=== PATIENT | male | born 1950 | race Caucasian/White ===

== ENCOUNTER 2018-08-27 10:31 | Day surgery (SDC) | payer MEDICARE, OTHER ==
[~2018-08-27] VITALS: Ht 167.6 cm; Wt 77.1 kg
[~2018-08-27 10:31] MED LIST: HYDROmorphone 2 MG/ML VIAL IV PRN; IV RINGERS,LACTATED 1000ML 1,000 ML IV SCH; LIDOCAINE 1% PF 2 ML VIAL. ID PRN; MORPHINE SULFATE 4 MG/ML VIAL. IV PRN; ONDANSETRON PF 4 MG/2 ML VIAL. IV PRN; PROCHLORPERAZINE 10 MG/2 ML VIAL. IV PRN; fentaNYL PF VIAL 100 MCG/2 ML VIAL IV PRN
[2018-08-27] MEDS ORDERED: LOSA100T14 PO (11:06)
[2018-08-27] MEDS ORDERED: OMEG-165 PO (11:07)
[2018-08-27] MEDS ORDERED: ASPI81TA50 PO (11:07)
[2018-08-27] MEDS ORDERED: UBID30CA6 PO (11:08)
[2018-08-27] MEDS ORDERED: CRESTOR40 MG PO (11:09)
[2018-08-27] MEDS ORDERED: LIDOCAINE 2% JELLY 6ML IN APPLICATOR. ONE (11:28)
[2018-08-27] MEDS ORDERED: IOHEXOL 300 MG/ML 100ML VIAL. ONE (11:28)
[2018-08-27] MEDS ORDERED: ePHEDrine PF IN SALINE 50 MG/5 ML DISP.SYRIN IV ONE (11:44)
[2018-08-27] MEDS ORDERED: fentaNYL PF VIAL 100 MCG/2 ML VIAL ONE (11:44)
[2018-08-27] MEDS ORDERED: LIDOCAINE 2% PF Vial for OR 5 ML VIAL. ONE (11:45)
[2018-08-27] MEDS ORDERED: PROPOFOL 20 ML IV ONE ×2 (11:45→13:32)
[2018-08-27] MEDS ORDERED: STERILE WATER IRR ONE (12:30)
[2018-08-27] MEDS ORDERED: MITOMYCIN IRR ONE (12:30)
[2018-08-27] MEDS ORDERED: ONDANSETRON PF 4 MG/2 ML VIAL. ONE (13:37)
[2018-08-27] MEDS ORDERED: DEXAMETHASONE SOD PHOS 20 MG/5 ML VIAL. ONE (13:37)
[2018-08-27] MEDS ORDERED: GLYCOPYRROLATE 1 MG/5 ML VIAL. ONE (13:41)
[2018-08-27] MEDS ORDERED: ESMOLOL 100 MG/10 ML VIAL. IV ONE (14:08)
--- NOTE | 2018-08-27 14:30 | PDOC4 ---
OPERATIVE NOTE Date: Date: Aug 27, 2018 Pre-Op Diagnosis: Gen Anes and pt placd in lithotomy pos'n. IV abx were admin'd. Cysto performed w 21-Fr cystoscope. Ant urethra nl. Prostatic urethra compromised but not obstructing. Bladder exam revealed mild trabec, nl R UO, and shallow BT over the L marylin-trigone to neck. The L UO was not identified. The tumor was removed with the 24-Fr resectoscope. It appeared to be shallow in all areas. The L UO was not clearly identified. All resection sites were thoroughly fulgurated. On final exam, the tumor had been completely resected and the resection sites were hemostatic. The scope was removed and a blanton was placed and the bladder drained. Mitomycin, 20 mg in 50cc saline, was the introduced into the bladder and the blanton was clamped. The pt was then transferred to after emergence from anesthesia. There were no comp's. Pt was stable throughout. Post-Op Diagnosis: TCCB Procedure Performed: see above; the pre op dx was hematuria with bladder mass Surgeon: Young Anesthesia Type: Gen Blood Loss: minimal Specimans Obtained: bladder tumor tissue Findings: see above Complications: none Operative Note: see above ELIJAH BEARD MD Aug 27, 2018 14:30
[2018-08-27] MEDS ORDERED: POTASSIUM CL 20MEQ-0.45% NACL 1,000 ML IV SCH (14:31)
--- NOTE | 2018-08-27 14:41 | DISCH ---
DISCHARGE INSTRUCTIONS Condition on Discharge Condition on Discharge: Stable Activity After Discharge Activity Instructions for Disc: Avoid exertion, Bedrest today, Progressive ambulation Lifting Instructions after Dis: No heavy lifting Driving Instructions after Dis: Do not drive Weight Bearing Status after Di: Full weight bearing Diet after Discharge Diet after Discharge: Clear Liquid Contacting the DRKatya after DC Call your doctor for: Fever greater than 100 Follow-Up Follow up with: Dr Vidal's office; call in 48 hrs ELIJAH VIDAL MD Aug 27, 2018 14:40
[2018-08-27] MEDS ORDERED: HYDROcodone/APAP 5/325MG 1 TAB TABLET PO PRN (14:45)
[2018-08-27] MEDS ORDERED: 0.9 % SODIUM CHLORIDE 10 ML DISP.SYRIN. IV PRN (14:45)
[2018-08-27] MEDS ORDERED: NALOXONE 0.4 MG/ML VIAL. IV PRN (14:45)
[2018-08-27] MEDS ORDERED: CIPR250T30 PO (15:07)
[2018-08-27 15:48] VITALS: BP 167/95
--- NOTE | 2018-08-28 17:09 | PATHOLOGY ---
[facility] Accession Number: [id number] . 01 Material submitted: . BLADDER TUMOR . 01 Clinical history: . Bladder cancer . 02 Diagnosis: Bladder tumor, transurethral resection: - PAPILLARY UROTHELIAL CARCINOMA, LOW GRADE TO FOCAL HIGH GRADE. - Chronic inflammation. (JPM:alexandria; 08/28/2018) QMS/08/28/2018 . 02 Comment: Sections of the bladder tumor transurethral resection reveal a papillary, low grade to focal high grade urothelial carcinoma. There is focal chronic inflammation. There is no definitive evidence of invasive carcinoma. No muscularis propria is identified. The case is also examined by Dr. Nguyen, who concurs with the diagnosis. (JPM:alexandria 08/28/2018) . 02 Electronically signed: . Dennis Sosa MD, Pathologist NPI- [id number] . 01 Gross description: . The specimen is received in formalin, labeled "Dennis Escobar, bladder tumor", are multiple gomez-pink, irregular fragments measuring 1.0 x 0.7 x 0.2 cm in aggregate, entirely submitted in A1. ([facility]; 08/27/2018) SHS/SHS . 02 Pathologist provided ICD-10: C67.9, N30.20 . 02 CPT . 630716 Specimen Comment: A courtesy copy of this report has been sent to Specimen Comment: [phone]. Specimen Comment: Report sent to Performed at: 01 [facility] [address], [place] [id number] MD Ivan Santos MD Phone: [phone] Performed at: 02 [facility] [address] [place], [place] [id number] MD Dennis Sosa MD Phone: [phone]
== END 2018-08-27 16:19 | disposition home or self-care (01) ==
LOC: SURG 10:31
PROVIDERS: ATTEND Urology
DX: C67.0 Malignant neoplasm of trigone of bladder (principal); N30.20 Other chronic cystitis without hematuria; Z88.0 Allergy status to penicillin; Z88.8 Allergy status to other drugs, medicaments and biological substances; Z79.899 Other long term (current) drug therapy; Z98.890 Other specified postprocedural states; Z90.49 Acquired absence of other specified parts of digestive tract; I10 Essential (primary) hypertension; Z87.19 Personal history of other diseases of the digestive system; Z82.49 Family history of ischemic heart disease and other diseases of the circulatory system; F17.210 Nicotine dependence, cigarettes, uncomplicated; Z72.89 Other problems related to lifestyle
CPT/HCPCS: 51720; 52235; 88307; J0696; J1100; J2001; J2405; J2704; J3010; J3490; J9280; Q9967

== ENCOUNTER 2019-05-06 09:50 | Observation (INO) | payer MEDICARE ==
[2019-05-06] VITALS (9 sets, daily range): BP systolic 130–171; BP diastolic 68–94
[~2019-05-06 09:50] MED LIST changes: +ASPI-630 PO; +ASPI81TA50 PO; +CIPR250T30 PO; +CRESTOR40 MG PO; +CURCUMIN PO; +LOSA100T14 PO; +MORPHINE SULFATE 2 MG/ML VIAL. IV PRN; -MORPHINE SULFATE 4 MG/ML VIAL. IV PRN; +OMEG-165 PO; +UBID30CA6 PO; +[UNRECOGNIZED DRUG - OTHER] PO
[2019-05-06] MEDS ORDERED: fentaNYL PF VIAL 100 MCG/2 ML VIAL ONE ×2 (10:30→11:18)
[2019-05-06] MEDS ORDERED: CIPROFLOXACIN 400MG PREMIX 200 ML IV ONE (10:45)
[2019-05-06] MEDS ORDERED: PROPOFOL 20 ML IV ONE (11:18)
[2019-05-06] MEDS ORDERED: LIDOCAINE 2% PF 5 ML VIAL. ONE (11:18)
[2019-05-06] MEDS ORDERED: SEVOFLURANE 31 TO 60 MINUTES. IH ONE (12:31)
[2019-05-06] MEDS ORDERED: ePHEDrine PF IN SALINE 50 MG/10 ML SYRINGE. IV ONE (12:33)
[2019-05-06] MEDS ORDERED: GLYCOPYRROLATE 1 MG/5 ML VIAL. ONE (12:33)
[2019-05-06] MEDS: IV NORMAL SALINE 1000ML BAG 1,000 ML IV SCH (12:36)
[2019-05-06] MEDS ORDERED: ZOLPIDEM 5 MG TABLET. PO PRN (12:45)
[2019-05-06] MEDS ORDERED: MAG HYDROX/ALUMINUM HYD/SIMETH 30 ML ORAL.SUSP PO PRN (12:45)
[2019-05-06] MEDS ORDERED: NALOXONE 0.4 MG/ML VIAL. IV PRN ×2 (12:45)
[2019-05-06] MEDS ORDERED: MORPHINE SULFATE 2 MG/ML VIAL. IV PRN (12:45)
[2019-05-06] MEDS ORDERED: 0.9 % SODIUM CHLORIDE 10 ML DISP.SYRIN. IV PRN (12:45)
[2019-05-06] MEDS ORDERED: HYDROcodone/APAP 5/325MG 1 TAB TABLET PO PRN (12:45)
[2019-05-06] MEDS ORDERED: PROCHLORPERAZINE 25 MG SUPP.RECT. PR PRN (12:45)
[2019-05-06] MEDS ORDERED: PROCHLORPERAZINE 10 MG/2 ML VIAL. IV PRN (12:45)
[2019-05-06] MEDS ORDERED: ACETAMINOPHEN 325 MG TABLET. PO PRN (12:45)
[2019-05-06] MEDS ORDERED: diphenhydrAMINE HCL 25 MG CAPSULE PO PRN (12:45)
--- NOTE | 2019-05-06 12:49 | PDOC4 ---
OPERATIVE NOTE Date: Date: May 06, 2019 Pre-Op Diagnosis: Hx Bladder Cancer Post-Op Diagnosis: same; suspicious area at L bladder neck Procedure Performed: Cysto, TUR Bladder neck L side Surgeon: Young Anesthesia Type: Gen Blood Loss: 25cc Specimans Obtained: bladder neck specimens Findings: heaped up necrotic tissue on L bladder neck extending into the prostate; L UO not visualized Complications: neg Operative Note: Gen Anes Pt rec'd IV abx Pt placed in lithotomy pos'n Cysto w 21 Fr scope demonstrated nl ant urethra, compromised prostate fossa with necrotic shaggy tissue al L bladder neck. The bladder revealed no obvious tumors. The R UO was visualized and was wnl. The L UO was not identifiable. The 24 Fr Resectoscope was introduced and the tissue at the L side of the nec was removed in usual fashion. The base was cauterized with the "roller" for max hemostasis. All tissue fragments were removed from bladder for path exam. A 22 Fr 3-way fole was placed and irrigated ; the return was clear. CBI was established. The patient was then awakened and transferred to RR in stable cond'n. Disp: will keep overnight with blanton and rmove in am if clear. Path is pending. He is on Abx for his staph UTI. Pt tolerated well and was in stable cond'n in RR. ELIJAH BEARD MD May 06, 2019 12:48
[2019-05-06] MEDS ORDERED: PROCHLORPERAZINE 10 MG/2 ML VIAL. ONE (13:17)
[2019-05-06] MEDS: HYDROcodone/APAP 5/325MG 1 TAB TABLET PO PRN ×2 (13:37→21:40)
[2019-05-06] MEDS: POTASSIUM CL 20MEQ D5-0.45NACL 1,000 ML IV SCH ×2 (14:20→23:44)
[2019-05-06] MEDS: OPIUM/BELLADONNA 30/16.2MG SUPP.RECT. PR SCH ×2 (14:20→21:38)
[2019-05-06] MEDS: SENNOSIDES/DOCUSATE 8.6/50MG TABLET. PO SCH (21:37)
[2019-05-07 03:00] VITALS: BP 150/81
[2019-05-07] MEDS: HYDROcodone/APAP 5/325MG 1 TAB TABLET PO PRN (04:51)
[2019-05-07] MEDS: OPIUM/BELLADONNA 30/16.2MG SUPP.RECT. PR SCH ×2 (06:00→08:12)
[2019-05-07 06:01] LABS: BASO % 0 % (0-3); EOS % 0 % (0-3); HEMATOCRIT 41.7 % (39.0-53.0); LYMPH # 0.7 x10^3/uL (1.0-4.8); LYMPH % 6 % (24-48); MEAN CORPUSCULAR HEMOGLOBIN 30 pg (25-35); MEAN CORPUSCULAR HGB CONC 34 g/dL (31-37); MEAN CORPUSCULAR VOLUME 90 fL (79-100); MONO # 0.7 x10^3/uL (0.0-1.1); MONO % 5 % (0-9); NEUT # 10.7 x10^3/uL (1.8-7.7); NEUT % 89 % (31-73); PLATELET COUNT 203 x10^3/uL (140-400); RED BLOOD COUNT 4.64 x10^6/uL (4.30-5.70); RED CELL DISTRIBUTION WIDTH 14.9 % (11.5-14.5)
[2019-05-07 06:40] LABS: CALCIUM 9.9 mg/dL (8.5-10.1); CREATININE 1.6 mg/dL (0.7-1.3); GFR 43.1; POTASSIUM 4.9 mmol/L (3.5-5.1)
[2019-05-07 07:00] VITALS: BP 158/88
[2019-05-07] MEDS: SENNOSIDES/DOCUSATE 8.6/50MG TABLET. PO SCH (08:07)
[2019-05-07] MEDS: IV NORMAL SALINE 1000ML BAG 1,000 ML IV SCH (08:09)
[2019-05-07] MEDS: POTASSIUM CL 20MEQ D5-0.45NACL 1,000 ML IV SCH (08:11)
[2019-05-07 08:29] LABS: % BANDS 12 % (0-9); % LYMPHS 4 % (24-48); % MONOS 4 % (0-10); % SEGS 80 % (35-66); PLT ESTIMATE ADEQUATE (ADEQUATE)
--- NOTE | 2019-05-07 09:35 | NUR ---
Discharge Note: FILE,[address] Discharge instructions and discharge home medications reviewed with Patient and a copy given. All questions have been answered and understanding verbalized. The following instructions and handouts were given: information about appointments, medications, follow up, etc. Discontinued lines and drains: IV line in right hand removed, catheter tip intact. Patient discharged to home with self care with , patient ambulated to discharge vehicle.
--- NOTE | 2019-05-07 09:53 | DISCH ---
DISCHARGE INSTRUCTIONS Condition on Discharge Condition on Discharge: Stable Activity After Discharge Activity Instructions for Disc: Activity as tolerated Lifting Instructions after Dis: No heavy lifting Exercise Instruction after Dis: Progress as tolerated Weight Bearing Status after Di: As tolerated Diet after Discharge Diet after Discharge: Regular Diet Texture: Regular Liquid Texture: Thin Liquid Swallowing Supervision: None needed Checks after Discharge Checks after discharge: Check blood press - daily, Check your Temp as needed Contacting the DR. after DC Call your doctor for: Fever greater than 100 Follow-Up Follow up with: Dr. Vidal next week [phone] for pathology results. Follow Up With: Primary Care Physician within 1 week. Treatment/Equipment after DC Adaptive Equipment Issued: None TAMI GONZALEZ May 07, 2019 09:53
--- NOTE | 2019-05-07 11:27 | PDOC3 ---
Discharge Summary Visit Information Date of Admission: May 06, 2019 Date of Discharge: May 07, 2019 Admitting Diagnosis: bladder mass Final Diagnosis Problems Medical Problems: (1) Bladder cancer Status: Chronic Brief Hospital Course Allergies Allergies Coded Allergies Type Severity Reaction Last Updated Verified Penicillins Adverse Reaction Intermediate Nausea and Vomiting 05/06/19 Yes amlodipine Adverse Reaction Intermediate DOUBLE VISION 05/06/19 Yes lisinopril Adverse Reaction Intermediate COUGH 05/06/19 Yes Vital Signs Vital Signs Date Time Temp Pulse Resp B/P (MAP) Pulse Ox O2 Delivery O2 Flow Rate FiO2 05/07/19 07:49 Room Air 05/07/19 07:00 97.8 65 16 158/88 (111) 94 97.8 05/06/19 13:00 8 Lab Results Laboratory Tests Test 05/07/19 04:40 White Blood Count 12.0 x10^3/uL (4.0-11.0) Red Blood Count 4.64 x10^6/uL (4.30-5.70) Hemoglobin 14.0 g/dL (13.0-17.5) Hematocrit 41.7 % (39.0-53.0) Mean Corpuscular Volume 90 fL (79-100) Mean Corpuscular Hemoglobin 30 pg (25-35) Mean Corpuscular Hemoglobin Concent 34 g/dL (31-37) Red Cell Distribution Width 14.9 % (11.5-14.5) Platelet Count 203 x10^3/uL (140-400) Neutrophils (%) (Auto) 89 % (31-73) Lymphocytes (%) (Auto) 6 % (24-48) Monocytes (%) (Auto) 5 % (0-9) Eosinophils (%) (Auto) 0 % (0-3) Basophils (%) (Auto) 0 % (0-3) Neutrophils # (Auto) 10.7 x10^3/uL (1.8-7.7) Lymphocytes # (Auto) 0.7 x10^3/uL (1.0-4.8) Monocytes # (Auto) 0.7 x10^3/uL (0.0-1.1) Eosinophils # (Auto) 0.0 x10^3/uL (0.0-0.7) Basophils # (Auto) 0.0 x10^3/uL (0.0-0.2) Segmented Neutrophils % 80 % (35-66) Band Neutrophils % 12 % (0-9) Lymphocytes % 4 % (24-48) Monocytes % 4 % (0-10) Platelet Estimate Adequate (ADEQUATE) Large Platelets Few Sodium Level 137 mmol/L (136-145) Potassium Level 4.9 mmol/L (3.5-5.1) Chloride Level 103 mmol/L (98-107) Carbon Dioxide Level 25 mmol/L (21-32) Anion Gap 9 (6-14) Blood Urea Nitrogen 21 mg/dL (8-26) Creatinine 1.6 mg/dL (0.7-1.3) Estimated GFR (Cockcroft-Gault) 43.1 Glucose Level 144 mg/dL (70-99) Calcium Level 9.9 mg/dL (8.5-10.1) Laboratory Tests Test 05/07/19 04:40 White Blood Count 12.0 x10^3/uL (4.0-11.0) Red Blood Count 4.64 x10^6/uL (4.30-5.70) Hemoglobin 14.0 g/dL (13.0-17.5) Hematocrit 41.7 % (39.0-53.0) Mean Corpuscular Volume 90 fL (79-100) Mean Corpuscular Hemoglobin 30 pg (25-35) Mean Corpuscular Hemoglobin Concent 34 g/dL (31-37) Red Cell Distribution Width 14.9 % (11.5-14.5) Platelet Count 203 x10^3/uL (140-400) Neutrophils (%) (Auto) 89 % (31-73) Lymphocytes (%) (Auto) 6 % (24-48) Monocytes (%) (Auto) 5 % (0-9) Eosinophils (%) (Auto) 0 % (0-3) Basophils (%) (Auto) 0 % (0-3) Neutrophils # (Auto) 10.7 x10^3/uL (1.8-7.7) Lymphocytes # (Auto) 0.7 x10^3/uL (1.0-4.8) Monocytes # (Auto) 0.7 x10^3/uL (0.0-1.1) Eosinophils # (Auto) 0.0 x10^3/uL (0.0-0.7) Basophils # (Auto) 0.0 x10^3/uL (0.0-0.2) Segmented Neutrophils % 80 % (35-66) Band Neutrophils % 12 % (0-9) Lymphocytes % 4 % (24-48) Monocytes % 4 % (0-10) Platelet Estimate Adequate (ADEQUATE) Large Platelets Few Sodium Level 137 mmol/L (136-145) Potassium Level 4.9 mmol/L (3.5-5.1) Chloride Level 103 mmol/L (98-107) Carbon Dioxide Level 25 mmol/L (21-32) Anion Gap 9 (6-14) Blood Urea Nitrogen 21 mg/dL (8-26) Creatinine 1.6 mg/dL (0.7-1.3) Estimated GFR (Cockcroft-Gault) 43.1 Glucose Level 144 mg/dL (70-99) Calcium Level 9.9 mg/dL (8.5-10.1) Brief Hospital Course Mr. Escobar is a 68 old male who presented for TUR of bladder neck by Dr. Vidal. The patient tolerated the procedure well and was admitted to observation overnight with blanton catheter. Catheter was removed the next morning and patient was able to void. Urine was initially dark red and improved with more voids to light pink with no clots. He was discharged without a blanton and sent home with a prescription for cipro 250mg BID x5d and lortab 5/325mg 1-2 tab q6hr #24 PRN pain. Assessment Assessment Bladder mass, s/p TUR bladder neck Discharge Information Condition at Discharge: Stable Follow Up: Weeks ([address] Vidal) Disposition/Orders: D/C to Home Scheduled Aspirin (Aspirin) 81 Mg Tab.chew, 1 TAB PO DAILY for FOR THE HEART, #30 Ref 3 (Reported) Entered as Reported by: MARYAM TANG on 12/21/18 1652 Last Taken: Unknown Dose on 05/04/19 Last Action: Last Taken Edited on 05/06/19 1017 by MADI IBANEZ Losartan Potassium (Losartan Potassium) 100 Mg Tablet, 100 MG PO DAILY for HYPERTENSION, (Reported) Entered as Reported by: ÁLVARO DIAS on 08/27/18 1106 Last Taken: Unknown Dose on 05/06/19 0530 Last Action: Last Taken Edited on 05/06/19 1017 by MADI IBANEZ Rosuvastatin Calcium (Crestor) 40 Mg Tablet, 1 TAB PO TWICE WEEKLY for cholesterol, #30 Ref 5 (Reported) Entered as Reported by: ÁLVARO DIAS on 08/27/18 1109 Last Taken: Unknown Dose on 05/05/19 Last Action: Last Taken Edited on 05/06/19 1017 by MADI IBANEZ Ubidecarenone (Co Q-10) 30 Mg Capsule, 30 MG PO Q MONDAY for supplement, (Reported) Entered as Reported by: ÁLVARO DIAS on 08/27/18 1108 Last Taken: Unknown Dose on 05/04/19 Last Action: Last Taken Edited on 05/06/19 1017 by MADI IBANEZ [Curcumin] , 100 MG PO DAILY, (Reported) Entered as Reported by: MARYAM TANG on 12/21/18 1650 Last Taken: Unknown Dose on 05/04/19 Last Action: Last Taken Edited on 05/06/19 1017 by MADI IBANEZ [Glucemic] , 1 CAP PO DAILY, (Reported) Entered as Reported by: MARYAM TANG on 12/21/18 1651 Last Taken: Unknown Dose on 05/04/19 Last Action: Last Taken Edited on 05/06/19 1017 by MADI IBANEZ Patient Instructions Patient Instructions Call DrKatya or go to ER for fever >100.5, worsening blood in urine, inability to urine TAMI GONZALEZ May 07, 2019 11:27
--- NOTE | 2019-05-08 18:06 | PATHOLOGY ---
[facility] Accession Number: [id number] . 01 Material submitted: . bladder - BLADDER NECK TISSUE. Modifiers: neck . 01 Clinical history: . Hx of TCCB . 02 Diagnosis: Urothelial mucosa, lamina propria, and smooth muscle, bladder neck tissue: - RESIDUAL INVASIVE LOW GRADE UROTHELIAL CARCINOMA, WITH EXTENSIVE AREAS OF NECROSIS, ACUTE INFLAMMATION, AND DYSTROPHIC CALCIFICATION,AND WITH FOCAL SMOOTH MUSCLE INVASION.SEE COMMENT. - Chronic cystitis with cystitis granularis. (JPM:[facility] 05/08/2019) [facility] 05/08/2019 1659 Local . 02 Comment: Sections of the bladder neck tissue reveal foci of residual invasive low grade urothelial carcinoma. There are extensive areas of tumor necrosis, acute inflammation and dystrophic calcification. Invasive carcinoma is focally identified associated with bundles of smooth muscle, which most likely represents muscular wall invasion. The case is also examined by Dr. Nguyen, who concurs with the diagnosis. (JPM:[facility] 05/08/2019) . 02 Electronically signed: . Dennis Sosa MD, Pathologist NPI- [id number] . 01 Gross description: . Received in formalin labeled "Dennis Escobar, bladder neck tissue," is a 1 g aggregate of gomez-brown soft tissue fragments and blood clot measuring 3.6 x 2.2 x 0.3 cm in aggregate dimensions. The specimen is submitted entirely in cassettes A1 and A2. ([facility]; 05/07/2019) XDC/XDC 05/07/2019 0829 Local . 02 Pathologist provided ICD-10: C67.9, N30.20 . 02 CPT . 141210 Specimen Comment: A courtesy copy of this report has been sent to Specimen Comment: [phone], . Specimen Comment: Report sent to / DR MORRISON Specimen Comment: A duplicate report has been generated due to demographic updates. Performed at: 01 [facility] [address] [id number] MD Ivan Santos MD Phone: [phone] Performed at: 02 [facility] [address] [place], [place] [id number] MD Dennis Sosa MD Phone: [phone]
== END 2019-05-07 09:35 | disposition home or self-care (01) ==
LOC: SURG 09:50 → 4 NORTH 13:15
PROVIDERS: ADMIT Urology; ATTEND Urology
DX: C67.9 Malignant neoplasm of bladder, unspecified (principal); N39.0 Urinary tract infection, site not specified; B95.8 Unspecified staphylococcus as the cause of diseases classified elsewhere
CPT/HCPCS: 36415; 52500; 80048; 85007; 85025; 88305; A7015; G0378; G0379; J0744; J0780; J2001; J2704; J3010; J3490; J0171